=== PATIENT | male | born 1955 | race Caucasian/White ===

== ENCOUNTER → 2017-02-14 16:11 | Outpatient (CLI) | payer BC | END | disposition home or self-care (01) | LOC: D.CT 16:11 | DX: R91.8 Other nonspecific abnormal finding of lung field (principal) ==

== ENCOUNTER → 2017-03-17 13:48 | Outpatient (CLI) | payer BC | END | disposition home or self-care (01) | LOC: D.RAD 03-16 08:30 → D.CT 03-16 11:30 → D.RAD 03-16 13:00 → D.CT 03-16 14:00 → D.RAD 13:48 | DX: S83.231A Complex tear of medial meniscus, current injury, right knee, initial encounter (principal) ==

== ENCOUNTER 2017-04-18 05:16 | Day surgery (SDC) | payer BC ==
[~2017-04-18] VITALS: Ht 185.4 cm; Wt 72.6 kg
[~2017-04-18 05:16] MED LIST: AMBIEN10 MG PO; OXYCODONE HCL10 MG PO
[2017-04-18 08:52] VITALS: BP 109/72; Ht 185.4 cm; Wt 72.6 kg
--- NOTE | 2017-04-21 19:16 | OP ---
PATIENT NAME: TRESA BARRETO MEDICAL RECORD: [id number] :57 LOCATION:[facility] ADMISSION DATE: SURGEON: ROMELIA MARES MD DATE OF OPERATION: 04/18/2017 PREOPERATIVE DIAGNOSIS: Medial meniscus tear of the right knee. POSTOPERATIVE DIAGNOSIS: Multiple loose bodies of the right knee. PROCEDURE: Removal of multiple loose bodies. SURGEON: Romelia Mares MD ANESTHESIA: General. INTRAOPERATIVE COMPLICATIONS: None. SUMMARY OF PATHOLOGIC FINDINGS: The patient's meniscus was relatively in good condition with no need for further resection; however, the patient did have multiple loose chondral fragments floating in the medial compartment that were emanating from a large area of chondral loss on the posterior aspect of the patella. OPERATIVE SUMMARY IN DETAIL: After obtaining the appropriate preoperative orthopedic surgery consent as well as anesthetic consultation, evaluation and clearance operating room and placed on operating table in supine position. After general laryngeal mask was administered, tourniquet was placed about the proximal aspect of the right lower extremity. Right lower extremity was prepped and draped in routine sterile fashion. Leg was elevated, exsanguinated and tourniquet was inflated to 350 mmHg. Routine inferolateral portal was established followed by superomedial portal and inferomedial portal. Diagnostic arthroscopy did reveal the above findings. An arthroscopic resector was utilized to debride all the loose chondral bodies that are described above the area of chondral loss in the central aspect of the patella. At this point, the knee was insufflated with 30 cc of 0.25% Marcaine with epinephrine and 80 mg of Depo-Medrol. Arthroscopy portals were closed in routine interrupted fashion using 4-0 Prolene. Sterile dressings were applied. The patient was awakened, taken to recovery in stable condition. All final needle and sponge counts were correct. TRANSINT:[id number] Voice Confirmation ID: [id number] DOCUMENT ID: [id number] ROMELIA MARES MD at 1916 CC: [id number] DICTATION DATE: 04/18/17 1106 WIRE PHOTO OPERATOR: 04/18/17 1239 [facility] 04/18/17 [facility] [address] [id number]
== END 2017-04-18 12:40 | disposition home or self-care (01) ==
LOC: D.OPS 05:16 → D.PAN 10:15 → D.OPS 12:40
DX: M23.41 Loose body in knee, right knee (principal); M22.41 Chondromalacia patellae, right knee; Z01.812 Encounter for preprocedural laboratory examination

== ENCOUNTER → 2017-06-17 18:14 | Outpatient (CLI) | payer BC ==
[2017-04-18 08:52] VITALS: BMI 21.1
[~2017-06-17 18:14] MED LIST changes: +DITROPAN X5 MG/BOTTL PO; +HYDROCODON-ACE1 EAC7 PO
== END | disposition home or self-care (01) ==
LOC: D.LABREF 18:14
DX: R31.9 Hematuria, unspecified (principal)

== ENCOUNTER → 2017-06-22 15:43 | Outpatient (CLI) | payer BC ==
[2017-04-18 08:52] VITALS: BMI 21.1
== END | disposition home or self-care (01) ==
LOC: D.CT 15:43
DX: N02.9 Recurrent and persistent hematuria with unspecified morphologic changes (principal)

== ENCOUNTER 2017-07-07 06:36 | Day surgery (SDC) | payer BC ==
[~2017-07-07 06:36] MED LIST changes: -DITROPAN X5 MG/BOTTL PO; -HYDROCODON-ACE1 EAC7 PO
[2017-07-07 07:38] VITALS: BP 101/66; BMI 20.8
[2017-07-07 08:35] LABS: HEMATOCRIT 43.5 % (42.0-54.0); HEMOGLOBIN 14.7 g/dL (13.5-17.5); MCH 31.3 pg (26.0-34.0); MCHC 33.8 g/dL (31.0-37.0); MCV 92.8 fL (80.0-100.0); MEAN PLATELET VOLUME 9.5 fL (7.4-10.4); RBC 4.69 10x6/uL (4.20-6.10); RDW 13.2 % (11.5-14.5); WBC 5.6 10x3/uL (4.8-10.8)
--- NOTE | 2017-07-07 10:46 | NUR ---
8004 DISCHARGE INSTRUCTIONS COMPLETE. PT HAS NO QUESTIONS OR CONCERNS. FOLLOW UP APPOINTMENT GIVEN. ESCORTED OUT BY VOLUNTEER.
--- NOTE | 2017-07-07 11:45 | OP ---
PATIENT NAME: TRESA BARRETO MEDICAL RECORD: [id number] :57 LOCATION:[facility] ADMISSION DATE: SURGEON: LEXA SHAFER MD DATE OF OPERATION: 07/07/2017 SURGEON: Lexa Shafer MD ANESTHESIA: MAC by You Khan CRNA. PREOPERATIVE DIAGNOSIS: Gross hematuria. PROCEDURES: Cystoscopy, bladder tumor biopsy times 3. FINDINGS: Nonobstructive prostate. Single ureteral orifices bilaterally. Velvety bladder mass on the dome of bladder with extensive area of coverage. SPECIMENS: Bladder tumor biopsies. BLOOD LOSS: Minimal. CLINICAL HISTORY: This is a 62-year-old male, who has been a 2-pack per week smoker since age 18. For the past 2 months, he has had gross hematuria. CT scan of the abdomen and pelvis did not show any abnormalities of the kidney. Urine cytology showed atypical cells, but no high-grade dysplastic cells were seen. He comes today to have cystoscopy. He is not allergic to any medications and he was given Ancef outside sales professional to the OR. DESCRIPTION OF PROCEDURE: The patient was given IV sedation. He was then placed in the dorsal lithotomy position and prepped and draped. Uro-Jet lidocaine jelly was placed into the urethra. A 17-East Timorese cystoscope with 30-degree lens was used for visualization. Penile urethra was nonobstructive and there were no lesions. Prostatic urethra was also not obstructive and no lesions were seen. Going into the bladder, single ureteral orifices were seen. A very large velvety area of the dome of the bladder was noted. As the bladder got distended, it seemed to bleed more. I took 3 cold cup biopsies from various areas of this velvety patch. The biopsy areas were then cauterized. Then the scope was removed. The patient will return to clinic sometime next week to review the pathology results. TRANSINT:[id number] Voice Confirmation ID: [id number] DOCUMENT ID: [id number] LEXA SHAFER MD at 1145 CC: [id number] DICTATION DATE: 07/07/17 1002 FIELD ARTILLERY BASIC: 07/07/17 1057 [facility] 07/07/17 [place] [address]
== END 2017-07-07 10:45 | disposition home or self-care (01) ==
LOC: D.OPS 06:36 → D.PAN 10:00 → D.OPS 10:45
PROVIDERS: Anesthesiology
DX: R31.0 Gross hematuria (principal); F17.200 Nicotine dependence, unspecified, uncomplicated; Z01.812 Encounter for preprocedural laboratory examination

== ENCOUNTER 2017-08-10 05:30 | Inpatient (IN) | payer BC ==
[2017-08-09 10:13] LABS: HEMATOCRIT 41.7 % (42.0-54.0); HEMOGLOBIN 14.1 g/dL (13.5-17.5); MCH 31.5 pg (26.0-34.0); MCHC 33.8 g/dL (31.0-37.0); MCV 93.1 fL (80.0-100.0); MEAN PLATELET VOLUME 9.4 fL (7.4-10.4); RBC 4.48 10x6/uL (4.20-6.10); RDW 12.7 % (11.5-14.5); WBC 8.2 10x3/uL (4.8-10.8)
[~2017-08-10] VITALS: Ht 185.4 cm; Wt 71.7 kg
[2017-08-10] MEDS ORDERED: AMBIEN10 MG PO (06:15)
[2017-08-10 06:17] VITALS: BP 114/69; BMI 20.7
--- NOTE | 2017-08-10 09:44 | NUR ---
PATIENT PAIN 7/10 DUE TO BLADDER SPASMS. OK TO GIVE DITROPAN ORDERED BY DR SHAFER PER ANESTHESAI
--- NOTE | 2017-08-10 09:48 | NUR ---
TOTAL 1500 ML EMPTIED FROM CATHETER
--- NOTE | 2017-08-10 10:00 | NUR ---
PATIENT PRESENTED FROM SURGERY POST OP TURP. ALERT/ORIENTX4 FAMILY WITH PATIENT. IV TO LEFT FOREARM. THREE WAY SHERIDAN CATH WITH IRRIGATION RUNNING.
--- NOTE | 2017-08-10 10:53 | NUR ---
THIS NURSE HUNG SECOND BAG OF NS FOR IRRIGATION.
[2017-08-10 11:05] VITALS: BP 160/87; BMI 20.8
--- NOTE | 2017-08-10 11:50 | NUR ---
PRN MORPHINE GIVEN FOR BLADDER SPASMS
--- NOTE | 2017-08-10 11:50 | NUR ---
THIRD IRRAGATION DONALD RODRIGUEZ.
--- NOTE | 2017-08-10 12:35 | NUR ---
PATIENT SHOWING SIGNES OF DISTRESS WITH PAIN/ BLADDER SPASM. DR. STEPHENSON CONTACTED. NEW ORDER FOR ONE TIME DOES OF MORPHEN 4MG IV. IN ROOM, VERY STRESSED.
[2017-08-10 13:18] VITALS: BP 113/67
--- NOTE | 2017-08-10 14:00 | NUR ---
PRN NORCO GIVEN PER PATIENT REQUEST FOR BLADDER SPASM.
--- NOTE | 2017-08-10 15:25 | NUR ---
PRN MORPHEN GIVEN FOR BLADDER SPASM. PER PATIENT REQUEST. STATES PRN. NORCO DID NOT HELP HIS PAIN VERY MUCH
--- NOTE | 2017-08-10 16:25 | NUR ---
VALENT[place] RN IN ROOM WITH PATIENT. PATIENT IS STILL UNDER DISTRESS WITH BLADDER SPASM. IRRIGATED THREE WAY SHERIDAN CATH. DR. STEPHENSON CALLED AGAIN. NEW ORDER FOR B AND O SUPP. GIVEN.
[2017-08-10 17:05] VITALS: BP 139/84
--- NOTE | 2017-08-10 17:06 | NUR ---
PATIENT RESTING WELL. RESPITORY STEADY, EVEN.
[2017-08-10 20:00] VITALS: BP 110/57
--- NOTE | 2017-08-10 20:00 | NUR ---
ASSESSMENT PER FLOWSHEET. SHERIDAN TO BEDSIDE DRAINAGE WITH BLOOD TINGED URINE. NS CONTINUOUS IRRIGATION IN PROGRESS. SHERIDAN BAG EMPTIED. MANUAL TUMIE DONE WITH STERILE NS. SMALL CLOT REMOVED. IV PATENT LEFT ARM OF NS AT 50CC'S/HR SITE CLEAR.
--- NOTE | 2017-08-10 20:34 | NUR ---
C/O PAIN IN BLADDER RATES PAIN LEVEL #8 MORPHINE 4 MG IVP GIVEN FOR PAIN CONTROL.
--- NOTE | 2017-08-10 21:00 | NUR ---
ROUTINE HS MEDS GIVEN PER OCT. EMPTIED SHERIDAN BAG. HUNG 2000CC'S IRRIGATION NS SOLUTION TO [address] CATHETER. SR UP X2 CALL LIGHT WITHIN REACH GETTING READY TO LEAVE FOR HOME.
--- NOTE | 2017-08-10 23:33 | NUR ---
C/O BREATHROUGH PAIN RATES PAIN LEVEL #5-6. NORCO 5 TAB ONE PO GIVEN FOR PAIN CONTROL.
--- NOTE | 2017-08-11 00:30 | NUR ---
EYES CLOSED RESPIRATIONS WITH EASE AND UNLABORED.
--- NOTE | 2017-08-11 02:36 | NUR ---
C/O BLADDER PAIN MORPHINE 4MG IVP GIVEN FOR RELIEF EMPTIED SHERIDAN BAG. HUNG IRRIGATION SOLUTION. URINE COLOR=PINK TINGED ONE CLOT REMOVED.
[2017-08-11 04:00] VITALS: BP 107/62
--- NOTE | 2017-08-11 04:48 | NUR ---
EYES CLOSED RESPIRATIONS WITH EASE AND UNLABORED.
--- NOTE | 2017-08-11 07:37 | OP ---
PATIENT NAME: TRESA BARRETO MEDICAL RECORD: [id number] :57 LOCATION:[id number] ADMISSION DATE: SURGEON: LEXA SHAFER MD DATE OF OPERATION: 08/10/2017 SURGEON: Lexa Shafer MD ANESTHESIA: General anesthesia. ANESTHESIOLOGIST: Dr. Aaron Guerrero. PREOPERATIVE DIAGNOSIS: Gbfnqvywy-oe-psfh of the bladder dome greater than 5 cm. PROCEDURES: Cystoscopy, transurethral resection of bladder tumor greater than 5 cm. FINDINGS: Large areas of velvety redness on the posterior wall and dome of the bladder, with some areas of low papillary tumor. The size of this patch is greater than 5 cm in diameter. Single ureteral orifices bilaterally which are spared of tumor. SPECIMENS: Bladder tumor. ESTIMATED BLOOD LOSS: Minimal. CLINICAL HISTORY: This is a 62-year-old male, who is a smoker, 1 pack per day. He works with a [employer] track. He was found to have microscopic hematuria. Upper tract imaging with a CT showed no lesions of the kidney. On cystoscopy, he had areas of velvety inflammation of the bladder, which I biopsied. This came back as "high-grade dysplasia," but in situ, "superficial urothelial carcinoma" is in the differential diagnosis. I suspect that he has uunhohiss-nq-zoxo. He comes today to have this area fully resected to get good tissue diagnosis. If he does have carcinoma in situ then he will require a course of BCG in the future. He is not allergic to any medications. He was given Ancef 1 gram IV senior controls technician to the OR. DESCRIPTION OF PROCEDURE: The patient was given induction of general anesthesia. He was then placed into dorsal lithotomy position and prepped and draped. A 20-Qatari cystoscope with 30-degree lens was used for visualization. Penile urethra was normal with no tumors, and no strictures. Prostatic urethra was nonobstructive. Going into the bladder, single ureteral orifices were seen, and large reddish velvety area was seen. Now there are also some areas of papillary tumor seen also. We then made change to the 28-Qatari resectoscope, which has continuous flow. Monopolar resection loop was used with sterile water for irrigation. We used pure cut at 50 suggs and coagulation at 50 suggs. I resected the entire velvety surface area. I tried to stay relatively superficial in order not to perforate the bladder. Basically, the urothelium was denuded and part of the muscle was also obtained. Any arterial bleeding that we encountered was immediately coagulated. Finally, the entire velvety surface had been resected. Final examination of the bladder showed no active bleeding sites. The ureteral orifices were still intact. The lens was removed and an giddy evacuator was used and no specimens were seen to be floating around. They had been removed by drainage of the bladder periodically through the scope. At this point, a 22-Qatari 3-way Pryor catheter was inserted into OPERATIVE REPORT [id number] TRESA BARRETO the bladder. The balloon was inflated with 30 cc of sterile water. Continuous bladder irrigation with normal saline was started. I will keep him in observation overnight for continuous bladder irrigation. If the drainage was relatively clear, then he can go home with the indwelling Pryor catheter and see me next week to have the catheter removed and to review the pathology. TRANSINT:[id number] Voice Confirmation ID: [id number] DOCUMENT ID: [id number] LEXA SHAFER MD at 0737 CC: [id number] DICTATION DATE: 08/10/17 0856 GARMENT MENDER: 08/10/17 1424 [facility] [address] [place] [address]
--- NOTE | 2017-08-11 07:45 | NUR ---
REPORT RECEIVED, ASSUMED CARE OF PT. RESTING, PAIN 03/07, MEDICATION GIVEN ORDERED. BLADDER IRRIGATION IN PLACE, DRAINING. NO OTHER NEEDS VOICED AT THIS TIME. BED IN LOWEST POSITION, SIDE RAILS UP X 2, CALL LIGHT WITHIN REACH.
[2017-08-11 08:48] VITALS: BP 111/55
[2017-08-11 12:33] VITALS: BP 113/63
[2017-08-11 13:59] VITALS: Ht 185.4 cm; Wt 71.7 kg
[2017-08-11 15:55] VITALS: BP 113/63
[2017-08-11 20:00] VITALS: BP 101/60
--- NOTE | 2017-08-11 20:00 | NUR ---
ASSESSMENT PER FLOWSHEET. IV SALINE LOCKED LEFT FOREARM. 3-WAY SHERIDAN CATHETER PATENT AND DRAINING PINK COLORED URINE. AT BEDSIDE.
--- NOTE | 2017-08-11 20:45 | NUR ---
C/O BLADDER SPASMS AND BLADDER PAIN. TOO EARLY FOR MORPHINE. B&O SUPPOSITORY X1 GIVEN RECTALLY AND NORCO 5 TAB ONE PO GIVEN FOR PAIN CONTROL. PT REQUESTING HIS SLEEPING PILL. AMBIEN 10MG PO GIVEN FOR SLEEP. INFORMED PATIENT THAT IF HE NEEDED MORE PAIN MEDS HE COULD HAVE HIS MORPHINE AT 2200. LEAVING FOR THE NIGHT.
--- NOTE | 2017-08-11 22:00 | NUR ---
RESTING QUIETLY EYES CLOSED RESPIRATIONS WITH EAS AND UNLABORED.
[2017-08-12] VITALS: BP 115/64
--- NOTE | 2017-08-12 01:51 | NUR ---
EYES CLOSED RESPIRATIONS WITH EASE AND UNLABORED DENIES NEEDS.
[2017-08-12 04:00] VITALS: BP 110/67
--- NOTE | 2017-08-12 08:00 | NUR ---
ASSESSMENT PER FLOW SHEET.PT WITHOUT DISTRESS.DENIES NEDS.MEDS ORDERED PER MAR FOR PAIN
[2017-08-12 08:08] VITALS: BP 109/62
--- NOTE | 2017-08-12 10:54 | NUR ---
Patient Name: TRESA BARRETO Admission Status: Elective Accout number: [id number] Admission Date: 08-11-2017 : 1955 Admission Diagnosis:CARCINOMA IN SITU OF BLADDER Attending: DESHAWN SHAFER Current LOS: 1 Anticipated DC Date: 08-12-2017 Planned Disposition: Home Primary Insurance: Pain Doctor [facility] Discharge Planning Comments: CM MET WITH PATIENT REGARDING D/C NEEDS AND PLANS. PATIENT STATED HE LIVES WITH HIS (LIDIA) AND SHE WILL DRIVE PATIENT HOME AT DISCHARGE. PATIENT HAS NO STEPS OR STAIRS AT HIS HOME. PATIENT IS INDEPENDENT WITH HIS CARE AND HAS A WALKER AT HOME IF NEEDED. PATIENTS PCP IS DR. RAZO AND PHARMACY IS [facility] [address]. PATIENT IS GOING HOME WITH A SHERIDAN AND DR. SHAFER IS HAVING NURSING TEACH SHERIDAN CARE. DR. SHAFER STATED PATIENT DOES NOT NEED HOME HEALTH. CM WILL CONTINUE TO FOLLOW PATIENT WITH D/C NEEDS AND PLANS. PCP DR. DANNI [facility] [address]- [phone] L[facility] () [phone] Embossed Or Impressed Lettering Painter: Dayan Wheat Is the patient Alert and Oriented? Yes 0 * How many steps to enter\exit or inside your home? 0 0 * PCP DR. RAZO 0 * Pharmacy [facility] [address] 0 * Preadmission Environment Home with Family 0 * ADLs Independent 0 * Equipment Walker 0 * List name and contact numbers for known caregivers / representatives who currently or will assist patient after discharge: LIDIA () [phone] 0 * Community resources currently utilized None 0 * Additional services required to return to the preadmission environment? Yes 0 * Can the patient safely return to the preadmission environment? Yes 0 * Has this patient been hospitalized within the prior 30 days at any hospital? No 0 Grand Total: 0
[2017-08-12] MEDS ORDERED: HYDROCODON-ACE1 EAC7 PO (11:39)
[2017-08-12] MEDS ORDERED: DITROPAN X5 MG/BOTTL PO (11:40)
--- NOTE | 2017-08-12 13:44 | NUR ---
CM REASSESSMENT NOTE: PATIENT IS DISCHARGING HOME TODAY/ DRIVING/DENIES ANY NEEDS OR HOME HEALTH. NURSING IS TEACHING SHERIDAN CARE TO PATIENT.
--- NOTE | 2017-08-12 14:40 | NUR ---
IV DCD WITH CATH INTCAT.SHERIDAN CONVERTED TO LEG BAG WITH TEACHING.PT STATES UNDERSTANDING. DISCHARGE INSTRUCTIONS WITH PT, STATES UNDERSTANDING. HAS GONE HOME TO GET CLOTHES
--- NOTE | 2017-08-12 15:30 | NUR ---
LEFT UNIT VIA WHEELCHAIR
== END 2017-08-12 15:30 | disposition home or self-care (01) | DRG 670 ==
LOC: D.OPS 05:30 → D.MS 05:30 → D.OPS 07:30 → D.PAN 07:30 → D.MS 09:20 → D.SDCHOLD 08-11 12:03 → D.OPS 08-11 12:04 → D.MS 08-11 12:04
PROVIDERS: Anesthesiology; ADMIT Urology
PROC: 0TBB8ZZ Excision of Bladder, Via Natural or Artificial Opening Endoscopic (ICD-10-PCS; principal; 2017-08-11)
DX: D09.0 Carcinoma in situ of bladder (principal); N32.89 Other specified disorders of bladder